=== PATIENT | male | born 1955 | race Caucasian/White ===

== ENCOUNTER 2020-03-26 08:30 | Emergency (ER) | payer OTHER ==
[2020-03-26 09:12] VITALS: BP 155/91; PULSE 84; TEMP 98.1; BMI 26.4
[2020-03-26] MEDS ORDERED: OXYMETAZOLINE 0.05% NASAL SOLUTION 15 ML BOTTLE NS ONE (09:33)
[2020-03-26] MEDS ORDERED: TRANEXAMIC ACID 1000 MG/10 ML VIAL IVPUSH ONE (10:44)
[2020-03-26] MEDS ORDERED: TRANEXAMIC ACID 1000 MG/10 ML VIAL ONE (11:06)
== END 2020-03-26 12:07 | disposition home or self-care (01) ==
LOC: JER 08:30
PROC: 3E033GC Introduction of Other Therapeutic Substance into Peripheral Vein, Percutaneous Approach (ICD-10-PCS; principal; 2020-03-26)
DX: R04.0 Epistaxis (principal)
CPT/HCPCS: 99284-25